=== PATIENT | male | born 1980 | race Caucasian/White ===

== ENCOUNTER 2024-10-29 12:50 | Outpatient (CLI) | payer BC, SELFPAY ==
--- NOTE | ~2024-10-29 | MR_ITS ---
EXAMINATION: MR lumbar spine wo con DATE: 10/29/2024 13:20 INDICATION: Low back pain. Spinal stenosis. TECHNIQUE: Magnetic resonance imaging (MRI) of the lumbar spine was performed without intravenous con trast. Sequences included sagittal T2-weighted FSE, sagittal T2-weighted FS FSE, sagittal T1-weighted FSE, and axial T2-weighted FSE. COMPARISON: 01/21/11 FINDINGS: 6 mm retrolisthesis L5 on S1 and 2 mm retrolisthesis L2 on L3 and L3 on L4. Vertebral body heights ar e normal. Schmorl's node along the inferior endplate of T12. Severe disc height loss with fibrofatty degenerative endplate changes at L5-S1. Disc desiccation and mild disc height loss at L3-L4 and witho ut significant disc height loss at L2-L3. There are annular fissures at both L3-L4 and L5-S1. The con us medullaris terminates at L1. There is normal signal in the caudal spinal cord. Paravertebral soft tissues are unremarkable. The following disc levels are specifically discussed: T12-L1: The disc does not extend beyond the endplate margin. There is mild bilateral facet joint oste oarthritis. There is no neural foraminal stenosis. There is no central canal stenosis. L1-L2: The disc does not extend beyond the endplate margin. There is mild to moderate bilateral facet joint osteoarthritis. There is no neural foraminal stenosis. There is no central canal stenosis. L2-L3: Disc is bulging. There is minimal bilateral facet joint osteoarthritis. There is mild bilatera l neural foraminal stenosis. There is mild central canal stenosis. L3-L4: Disc is bulging with superimposed small right paracentral disc extrusion with disc material ex tending up to 4 mm caudal to the level of the superior endplate of L4. There is minimal bilateral fac et joint osteoarthritis. There is mild to moderate bilateral neural foraminal stenosis. There is mild central canal stenosis. L4-L5: Small disc protrusions at the bilateral foraminal zones. There is minimal bilateral facet join t osteoarthritis. There is mild bilateral neural foraminal stenosis. There is no central canal stenos is. L5-S1: Disc is mildly bulging with small central disc extrusion with disc material extending up to 3 mm caudal to the level of the superior endplate of S1. There is mild bilateral facet joint osteoarthr itis. There is moderate bilateral neural foraminal stenosis. There is minimal central canal stenosis with mild narrowing of the left and right lateral recesses. IMPRESSION: 1. Severe lumbosacral and mild lumbar spondylosis. Reviewed, dictated and finalized at location B. S [employer]
== END 2024-10-29 12:51 | disposition home or self-care (01) ==
DX: M48.07 Spinal stenosis, lumbosacral region (principal); M51.16 Intervertebral disc disorders with radiculopathy, lumbar region; M47.896 Other spondylosis, lumbar region
CPT/HCPCS: 72148